=== PATIENT | male | born 1965 | race Two or more races ===

== ENCOUNTER 2021-07-07 00:37 | Emergency (ER) | payer OTHER ==
[~2021-07-07] VITALS: Ht 185.4 cm; Wt 120.5 kg
[2021-07-07] MEDS ORDERED: LIDOCAINE 1%/EPI 1:200,000/PF 10 ML VIAL PERC ONE (01:00)
[2021-07-07] MEDS ORDERED: HYDROCODONE/ACETAMINOPHEN 5-325 MG TABLET PO ONE (01:15)
[2021-07-07] MEDS ORDERED: PERTUSS(ACELL),DIPH,TET VAC/PF 0.5 ML SYRINGE IM. ONE (01:30)
[2021-07-07] MEDS ORDERED: BACITRACIN 0.9 GM PACKET OINTMENT TP ONE (02:15)
[2021-07-07 02:38] VITALS: BP 129/88
== END 2021-07-07 03:05 | disposition home or self-care (01) ==
LOC: EMS 00:37
DX: S61.210A Laceration without foreign body of right index finger without damage to nail, initial encounter (principal); X58.XXXA Exposure to other specified factors, initial encounter; Y93.89 Activity, other specified; Y92.89 Other specified places as the place of occurrence of the external cause; Y99.8 Other external cause status
CPT/HCPCS: 12002; 29130; 90471; 90715; 99283; J3490